=== PATIENT | female | born 1985 | race African-American/Black ===

== ENCOUNTER 2017-10-15 09:37 | Emergency (ER) | payer OTHER ==
--- NOTE | 2017-10-15 12:15 | ULT ---
VENOUS DOPPLER ULTRASOUND OF THE LEFT LOWER EXTREMITY: HISTORY: Left leg edema since knee surgery 2 years ago. TECHNIQUE: Arizmendi scale ultrasound with color flow and spectral Doppler imaging of the deep venous system of the l eft lower extremity is performed. FINDINGS: There is good flow, compression, and augmentation noted in the left common femoral, femoral, deep fem oral, popliteal, posterior tibial, and greater saphenous veins. Incidental note is made of a prominent left groin lymph node measuring 1.5 cm in length. IMPRESSION: No evidence of deep vein thrombosis in the left lower extremity. POS: [facility]
== END 2017-10-15 10:43 | disposition home or self-care (01) ==
LOC: ERS 09:37
DX: M25.562 Pain in left knee (principal); B35.3 Tinea pedis; G89.29 Other chronic pain; Z96.652 Presence of left artificial knee joint

== ENCOUNTER 2018-04-29 19:49 | Emergency (ER) | payer MEDICAID, OTHER ==
[2018-04-29] MEDS ORDERED: Ketorolac Tromethamine 30 MG/ML VIAL ONE (20:49)
== END 2018-04-29 21:02 | disposition home or self-care (01) ==
LOC: ERS 19:49
DX: S16.1XXA Strain of muscle, fascia and tendon at neck level, initial encounter (principal); M25.572 Pain in left ankle and joints of left foot; M25.462 Effusion, left knee; M25.472 Effusion, left ankle; V43.52XA Car driver injured in collision with other type car in traffic accident, initial encounter
CPT/HCPCS: 96372; J1885

== ENCOUNTER 2018-07-09 16:51 | Emergency (ER) | payer OTHER | END 2018-07-09 17:17 | disposition home or self-care (01) | LOC: SCSER 16:51 | DX: M25.562 Pain in left knee (principal); L98.9 Disorder of the skin and subcutaneous tissue, unspecified | CPT/HCPCS: 99281 ==

== ENCOUNTER 2021-07-15 14:12 | Emergency (ER) | payer OTHER ==
[2021-07-15] MEDS ORDERED: Ketorolac Tromethamine 30 MG/ML VIAL ONE (15:06)
== END 2021-07-15 15:57 | disposition home or self-care (01) ==
LOC: ERS 14:12
DX: J03.80 Acute tonsillitis due to other specified organisms (principal); B96.89 Other specified bacterial agents as the cause of diseases classified elsewhere
CPT/HCPCS: 96372; 99283; J1885

== ENCOUNTER 2021-08-10 09:03 | Emergency (ER) | payer BC, OTHER | END 2021-08-10 09:36 | disposition home or self-care (01) | LOC: ERS 09:03 | DX: B34.9 Viral infection, unspecified (principal); Z20.822 Contact with and (suspected) exposure to COVID-19 | CPT/HCPCS: 87804; 99283; U0003; U0005 ==

== ENCOUNTER 2021-12-08 15:29 | Emergency (ER) | payer BC, OTHER | END 2021-12-08 17:24 | disposition home or self-care (01) | LOC: ERS 15:29 | DX: Z53.21 Procedure and treatment not carried out due to patient leaving prior to being seen by health care provider (principal) ==

== ENCOUNTER 2021-12-09 09:22 | Emergency (ER) | payer OTHER ==
[2021-12-09] MEDS ORDERED: Ketorolac Tromethamine 30 MG/ML VIAL ONE (10:25)
== END 2021-12-09 12:00 | disposition home or self-care (01) ==
LOC: ERS 09:22
DX: S63.502A Unspecified sprain of left wrist, initial encounter (principal); S39.012A Strain of muscle, fascia and tendon of lower back, initial encounter; V43.52XA Car driver injured in collision with other type car in traffic accident, initial encounter
CPT/HCPCS: 72131; 96372; J1885

== ENCOUNTER 2022-10-02 06:57 | Emergency (ER) | payer OTHER ==
[2022-10-02] MEDS ORDERED: Ketorolac Tromethamine 30 MG/ML VIAL ONE (07:42)
== END 2022-10-02 10:24 | disposition home or self-care (01) ==
LOC: ERS 06:57
DX: M79.672 Pain in left foot (principal); M25.572 Pain in left ankle and joints of left foot
CPT/HCPCS: 96372; J1885

== ENCOUNTER 2022-12-19 11:54 | Emergency (ER) | payer OTHER, SELFPAY ==
[2022-12-19 12:22] LABS: Bilirubin Negative (Negative); Blood, Urine 2+ (Negative); CAUTI Indications for Culture Fever or rigors; Clarity Clear (Clear); Glucose, Urine (Dipstick) Normal (Negative); Ketone, Urine 10 mg/dL (Negative); Leukocyte 250 Leu/uL (Negative); Nitrite Negative (Negative); Protein, Urine (Dipstick) Negative (Neg-Trace); Specific Gravity, Urine 1.028 (1.002-1.036); Urobilinogen Normal mg/dL (Less than 2); WBC/HPF 21-50 HPF (0-3); pH, Urine 5.5 (5.0-9.0)
[2022-12-19 12:29] LABS: Bacteria/HPF 2+ HPF (None Seen)
[2022-12-19 12:30] LABS: Urine Culture Reflex Yes Yes
[2022-12-19 12:50] LABS: #Basophils 0.1 thou/uL (0.0-0.2); #Monocytes 0.4 thou/uL (0.11-0.59); #Neutrophils 3.2 thou/uL (1.40-6.50); %Basophils 0.9 % (0.0-1.0); %Eosinophils 0.7 % (0.0-10.0); %Lymphocytes 37.4 % (21.0-51.0); %Monocytes 7.2 % (0.0-10.0); %Neutrophils 53.6 % (42.0-75.0); Hematocrit 37.3 % (36.0-47.0); Hemoglobin 11.9 g/dL (12.0-16.0); Mean Corpuscular HGB CONC 31.9 g/dL (32.0-36.0); Mean Corpuscular Hemoglobin 28.6 pg (27.0-31.0); Mean Corpuscular Volume 89.7 fl (78.0-98.0); Mean Platelet Volume 9.4 fL (7.4-10.4); Platelet Count 268 10x3/uL (130-400); RBC Distribution Width 14.3 % (11.5-14.5); Red Blood Cell (RBC) Count 4.16 mill/uL (4.20-5.40); White Blood Cell (WBC) Count 5.9 10x3/uL (4.8-10.8)
[2022-12-19 13:13] LABS: ALT (SGPT) 11 U/L (8-55); AST (SGOT) 18 U/L (5-34); Albumin 4.4 g/dL (3.5-5.0); Alkaline Phosphatase 44 U/L (40-110); Anion Gap 12 mmol/L (10-20); BUN (Urea Nitrogen) 12 mg/dL (7.0-18.7); Bilirubin, Total 0.8 mg/dL (0.2-1.2); Calc. Creatinine Clearance 0 mL/min (70-130); Carbon Dioxide 25 mmol/L (22-29); Chloride 106 mmol/L (98-107); Estimated GFR 90; Globulin 3.1 g/dL (2.4-3.5); Glucose 90 mg/dL (70-105); Potassium 3.5 mmol/L (3.5-5.1); Protein, Total 7.5 g/dL (6.0-8.3); Sodium 139 mmol/L (136-145)
== END 2022-12-19 13:30 | disposition home or self-care (01) ==
LOC: ERS 11:54
DX: N39.0 Urinary tract infection, site not specified (principal); R11.0 Nausea
CPT/HCPCS: 36415; 80053; 81001; 85025; 87077; 87086; 87186; 99284

== ENCOUNTER 2023-01-21 06:11 | Emergency (ER) | payer SELFPAY ==
[2023-01-21 07:02] LABS: #Basophils 0.1 thou/uL (0.0-0.2); #Eosinphils 0.1 thou/uL (0.0-0.7); #Monocytes 0.6 thou/uL (0.11-0.59); %Basophils 1.1 % (0.0-1.0); %Eosinophils 1.3 % (0.0-10.0); %Lymphocytes 39.5 % (21.0-51.0); %Monocytes 8.9 % (0.0-10.0); Hematocrit 39.3 % (36.0-47.0); Hemoglobin 12.7 g/dL (12.0-16.0); Mean Corpuscular HGB CONC 32.3 g/dL (32.0-36.0); Mean Corpuscular Hemoglobin 28.7 pg (27.0-31.0); Mean Corpuscular Volume 88.7 fl (78.0-98.0); Mean Platelet Volume 9.7 fL (7.4-10.4); Platelet Count 276 10x3/uL (130-400); RBC Distribution Width 13.7 % (11.5-14.5); Red Blood Cell (RBC) Count 4.43 mill/uL (4.20-5.40); White Blood Cell (WBC) Count 6.2 10x3/uL (4.8-10.8)
[2023-01-21 07:28] LABS: Troponin I Less than 0.010 ng/mL (< 0.028)
[2023-01-21 07:30] LABS: ALT (SGPT) 11 U/L (8-55); AST (SGOT) 22 U/L (5-34); Albumin 4.4 g/dL (3.5-5.0); Alkaline Phosphatase 50 U/L (40-110); Anion Gap 13 mmol/L (10-20); BUN (Urea Nitrogen) 11 mg/dL (7.0-18.7); Bilirubin, Total 0.8 mg/dL (0.2-1.2); Calc. Creatinine Clearance 0 mL/min (70-130); Calcium 9.3 mg/dL (7.8-10.44); Carbon Dioxide 26 mmol/L (22-29); Chloride 104 mmol/L (98-107); Estimated GFR 93; Globulin 4.3 g/dL (2.4-3.5); Glucose 87 mg/dL (70-105); Protein, Total 8.7 g/dL (6.0-8.3); Sodium 139 mmol/L (136-145)
[2023-01-21] MEDS ORDERED: Lidocaine 1% w/Epinephrine 1:100K 20 ML VIAL ONE (08:13)
[2023-01-21 11:27] LABS: RBC Count-Automated (BF) 169 /cu.mm; WBC/Nucleated-Auto (BF) 213 /cu.mm
[2023-01-21 11:49] LABS: BF Color Yellow; Body Fluid Source Synovial Fluid; Clarity Hazy (Clear); Tube # EDTA
[2023-01-21 12:02] LABS: BF Segmented Neutrophils 8 %; Cell Count Non Hematic 60 %; Lymphocytes 32 %
== END 2023-01-21 09:10 | disposition home or self-care (01) ==
LOC: ERS 06:11
DX: M25.461 Effusion, right knee (principal); R07.89 Other chest pain
CPT/HCPCS: 20610; 36415; 80053; 82945; 84484; 85025; 85060; 87070; 87205; 89051; 89060; 93005

== ENCOUNTER 2023-03-06 04:37 | Emergency (ER) | payer SELFPAY ==
[2023-03-06 06:01] LABS: SARS-CoV-2 NAA Rapid Test Not Detected (NotDetected)
== END 2023-03-06 07:00 | disposition home or self-care (01) ==
LOC: ERS 04:37
DX: B34.9 Viral infection, unspecified (principal)
CPT/HCPCS: 99284

== ENCOUNTER 2023-04-08 18:16 | Emergency (ER) | payer SELFPAY ==
[2023-04-08] MEDS ORDERED: Ketorolac Tromethamine 30 MG (1 mL) VIAL ONE (18:37)
[2023-04-08] MEDS ORDERED: Acetaminophen 500 MG TAB ONE (18:37)
[2023-04-08 20:10] LABS: SARS-CoV-2 NAA Rapid Test Not Detected (NotDetected)
== END 2023-04-08 20:22 | disposition home or self-care (01) ==
LOC: ERS 18:16
DX: H65.92 Unspecified nonsuppurative otitis media, left ear (principal); H73.92 Unspecified disorder of tympanic membrane, left ear
CPT/HCPCS: 71045; 96372; J1885

== ENCOUNTER 2023-08-14 04:23 | Emergency (ER) | payer BC ==
[2023-08-14] MEDS ORDERED: Ketorolac Tromethamine 30 MG (1 mL) VIAL ONE (05:02)
== END 2023-08-14 05:12 | disposition home or self-care (01) ==
LOC: ERS 04:23
DX: S39.012A Strain of muscle, fascia and tendon of lower back, initial encounter (principal); B35.3 Tinea pedis; X58.XXXA Exposure to other specified factors, initial encounter; Z55.6 Problems related to health literacy; Z02.79 Encounter for issue of other medical certificate
CPT/HCPCS: 96372; 99283; J1885

== ENCOUNTER 2023-12-23 16:22 | Emergency (ER) | payer BC ==
[2023-12-23 18:18] LABS: Bilirubin Negative (Negative); Blood, Urine 1+ (Negative); CAUTI Indications for Culture Dysuria,urgency,freq; Clarity Clear (Clear); Glucose, Urine (Dipstick) Normal (Negative); Ketone, Urine Trace mg/dL (Negative); Leukocyte 500 Leu/uL (Negative); Nitrite Negative (Negative); Protein, Urine (Dipstick) Negative (Neg-Trace); Specific Gravity, Urine 1.009 (1.002-1.036); Squamous Epithelial 0-3 HPF (0-3); Urobilinogen Normal mg/dL (Less than 2); WBC/HPF 21-50 HPF (0-3); pH, Urine 5.5 (5.0-9.0)
[2023-12-23 18:22] LABS: Bacteria/HPF 1+ HPF (None Seen)
[2023-12-23 18:23] LABS: Urine Culture Reflex Yes Yes
== END 2023-12-23 19:38 | disposition home or self-care (01) ==
LOC: ERS 16:22
DX: N39.0 Urinary tract infection, site not specified (principal); Z96.659 Presence of unspecified artificial knee joint
CPT/HCPCS: 81001; 87086; 99283